=== PATIENT | male | born 1985 | race Caucasian/White ===

== ENCOUNTER 2017-05-10 14:47 | Emergency (ER) | payer SELFPAY ==
--- NOTE | 2017-05-10 15:37 | EDM.PDOC ---
ED HPI GENERAL MEDICAL PROBLEM - General Chief Complaint: Abdominal Pain Stated Complaint: POSSIBLE HERNIA Time Seen by Provider: 05/10/17 15:25 Source of Information: Reports: Patient History Limitations: Reports: No Limitations - History of Present Illness INITIAL COMMENTS - FREE TEXT/NARRATIVE: HISTORY AND PHYSICAL: History of present illness: Patient is a 31-year-old male who presents to the emergency room with concerns of a hernia. Patient reports that approximately a ago he has noticed a small circular bulge to his right groin which is tender to touch. Believes that the area of concern gets bigger and smaller depending on activity. Denies any abdominal pain or testicular pain. As any difficulty or change in his bowel or bladder patterns. 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 Patient reports he is in a monogamous relationship and has no concerns of STI' s. Review of systems: As per history of present illness and below otherwise all systems reviewed and negative. Past medical history: As per history of present illness and as reviewed below otherwise noncontributory. Surgical history: As per history of present illness and as reviewed below otherwise noncontributory. Social history: No reported history of drug or alcohol abuse. Family history: As per history of present illness and as reviewed below otherwise noncontributory. Physical exam: Gen.: Nontoxic appearing 31-year-old male. Pleasant, alert and oriented. HEENT: Atraumatic, normocephalic, pupils reactive, negative for conjunctival pallor or scleral icterus, mucous membranes moist, throat clear, neck supple, nontender, trachea midline. Lungs: Clear to auscultation, breath sounds equal bilaterally, chest nontender. Heart: S1S2, regular, negative for clicks, rubs, or JVD. Abdomen: Soft, nondistended, nontender. Negative for masses or hepatosplenomegaly. Negative for costovertebral tenderness. Pelvis: Stable nontender. Genitourinary: Patient was assessed for an inguinal hernia with a theater projectionist present. Did not appreciate any masses or hernias bilaterally. The skin around the groin and testicular area is free of erythema, warmth, lesions or masses. Skin: A small circular node was palpated in the right groin area and has a rubbery texture and is mobile. Reports it is tender to palpation. Rectal: Deferred. Extremities: Atraumatic, negative for cords or calf pain. Neurovascular unremarkable. Neuro: Awake, alert, oriented. Cranial nerves II through XII unremarkable. Cerebellum unremarkable. Motor and sensory unremarkable throughout. Exam nonfocal. Viewed the ultrasound report with the patient. Continue to monitor the area and follow-up with primary care provider. She voices understanding and is agreeable to plan of care. Diagnostics: Ultrasound of the right groin Therapeutics: [] Impression: Reactive lymph node Definitive disposition and diagnosis as appropriate pending reevaluation and review of above. Duration: Week(s): Location: Reports: Other (Right groin) Right Lower Abdominal Pain Score (Numeric/FACES): 2 - Related Data Allergies Allergy/AdvReac Type Severity Reaction Status Date / Time No Known Allergies Allergy Verified 05/10/17 14:57 Home Meds: Home Meds . [No Known Home Meds] 05/10/17 [History] Past Medical History HEENT History: Reports: None Cardiovascular History: Reports: None Respiratory History: Reports: None Gastrointestinal History: Reports: None Genitourinary History: Reports: None Musculoskeletal History: Reports: None Neurological History: Reports: None Psychiatric History: Reports: None Endocrine/Metabolic History: Reports: None Hematologic History: Reports: None Immunologic History: Reports: None Oncologic (Cancer) History: Reports: None Dermatologic History: Reports: None - Infectious Disease History Infectious Disease History: Reports: Chicken Pox - Past Surgical History Head Surgeries/Procedures: Reports: None HEENT Surgical History: Reports: None Cardiovascular Surgical History: Reports: None Respiratory Surgical History: Reports: None GI Surgical History: Reports: None Male Surgical History: Reports: None Endocrine Surgical History: Reports: None Neurological Surgical History: Reports: None Musculoskeletal Surgical History: Reports: None Dermatological Surgical History: Reports: None Social & Family History - Family History Family Medical History: Noncontributory - Tobacco Use Smoking Status *Q: Current Every Day Smoker Years of Tobacco use: 15 Packs/Tins Daily: 1 - Caffeine Use Caffeine Use: Reports: None - Recreational Drug Use Recreational Drug Use: No ED ROS GENERAL - Review of Systems Review Of Systems: ROS reveals no pertinent complaints other than HPI. ED EXAM, GENERAL - Physical Exam Exam: See Below (See dictation) Course - Vital Signs Last Recorded V/S: Last Vital Signs Temp 36.8 C 05/10/17 14:57 Pulse 73 05/10/17 14:57 Resp 18 05/10/17 14:57 BP 138/77 05/10/17 14:57 Pulse Ox 97 05/10/17 14:57 Departure - Departure Time of Disposition: 16:55 Disposition: Home, Self-Care 01 Condition: Good Clinical Impression: Reactive lymphadenopathy - Discharge Information Referrals: PCP,None [Primary Care Provider] - Forms: ED Department Discharge Additional Instructions: The following information is given to patients seen in the emergency department who are being discharged to home. This information is to outline your options for follow-up care. We provide all patients seen in our emergency department with a follow-up referral. The need for follow-up, as well as the timing and circumstances, are variable depending upon the specifics of your emergency department visit. If you don't have a primary care physician on staff, we will provide you with a referral. We always advise you to contact your personal physician following an emergency department visit to inform them of the circumstance of the visit and for follow-up with them and/or the need for any referrals to a consulting specialist. The emergency department will also refer you to a specialist when appropriate. This referral assures that you have the opportunity for followup care with a specialist. All of these measure are taken in an effort to provide you with optimal care, which includes your followup. Under all circumstances we always encourage you to contact your private physician who remains a resource for coordinating your care. When calling for followup care, please make the office aware that this follow-up is from your recent emergency room visit. If for any reason you are refused follow-up, please contact the [facility] emergency department at and ask to speak to the emergency department charge nurse. [facility] Primary care- Internal Medicine and Family [address] [address] 1. Monitor for signs of infection as we discussed. Take an anti-inflammatory for pain and discomfort. 2. Follow-up with your primary care provider in the next 1-2 days. Return to the ED as needed as discussed
--- NOTE | 2017-05-10 16:44 | US ---
EXAMINATION: Right inguinal ultrasound HISTORY: Mass COMPARISON: None TECHNIQUE: Grayscale, color Doppler images obtained of the region of concern. FINDINGS: Within the right groin there are 3 adjacent lymph nodes noted. The largest measures up to 2 .1 x 1 cm. These demonstrate a preserved fatty hilum. The cortex is mildly irregular and thickened me asuring up to 4 mm. IMPRESSION: 1. Mildly prominent lymph nodes noted within the region of concern. These are most likely reactive, f ollow-up may be beneficial.
[2017-05-10 17:07] VITALS: BP 130/81
== END 2017-05-10 17:06 | disposition home or self-care (01) ==
LOC: MW.ED 14:47
DX: R59.1 Generalized enlarged lymph nodes (principal); F17.210 Nicotine dependence, cigarettes, uncomplicated
CPT/HCPCS: 76881-26-RT; 76881-RT; 99283; 99284-25